=== PATIENT | female | born 1955 | race Caucasian/White ===

== ENCOUNTER 2018-12-01 08:14 | Inpatient (IN) | payer MEDICARE ==
[~2018-12-01 08:14] MED LIST: Acetaminophen TAB* 325 MG PO ONE; Buffered Lidocaine 1% SYRIN* 1 ML/SYRINGE INTRADERM ONE; Dexamethasone TAB* 4 MG PO ONE; DiMENhydriNATE IV* 50 MG/ML VIAL IV PUSH PRN; Famotidine IV* 10 MG/ML 2 ML (20 mg) IV ONE; Gabapentin CAP(*) 300 MG PO ONE; HYDROmorphone INJ1* 1 MG/ML SYRINGE IV PRN; Lactated Ringers 1000 ML Bag* 1,000 ML IV SCH; Naloxone* 0.4 MG/ML 1 ML VIAL IV PRN; Ondansetron ODT TAB* 4 MG PO ONE; PROCHLORPERAZINE INJ 5 MG/ML 2 ML VIAL IV PRN; Tranexamic Acid 1,000 MG in NS 0.9% 50 ML* (outpatient use) IV SCH; fentaNYL* 50 MCG/ML 2 ML VIAL (100 MCG VIAL) IV PRN
--- OUTSIDE RECORDS SUMMARY | 2018-12-01 08:18 | XMS REPORT | Continuity of Care Document ---
:1955 External Reference #:[id number] Author Name Melva Pino M.D. (transmitted by agent of provider Becca Kellogg) Address [address] [place] [address] [place] [address] Care Team Providers Name Role Phone Jose Bethea MD - Internal Care Team Information Correction Officer Supervisor [phone] Medicine Problems Active Problems Provider Date Acquired genu valgum Melva Pino M.D. Onset: 09/28/2018 Localized, primary osteoarthritis Melva Pino M.D. Onset: 09/28/2018 Social History Type Date Description Comments Sex Unknown ETOH Use Denies alcohol use Tobacco Use Start: Unknown Patient has never smoked Recreational Drug Use Denies Drug Use Smoking Status Reviewed: 11/18/18 Patient has never smoked Exercise Type/Frequency Exercises sporadically Allergies, Adverse Reactions, Alerts Active Allergies Reaction Severity Comments Date Doxycycline vomit 09/28/2018 Inactive Allergies NKDA 01/31/2015 Medications Active Medications SIG Qnty Indications Ordering Date Provider Adjust Bath/Shower Seat shower seat Ht . Melva Pino, 2018 66 Wt 180 Dx M.D. Misc right knee OA Raised Toilet Seat raised toilet . Melva Pino, 11/17/2018 Misc seat ht 66 wt M.D. 180 dx right knee oa Cane/Wood/Ladies walking cane ht . Edgar Casa, 11/17/2018 Standardhandle/Stained 66 wt 180 dx [place] right knee oa Misc Rolling Walker (Sylvester) rolling walker . Melva Pino, 2018 ht 66 wt 180 dx M.D. right knee oa Altace 1/2 by mouth Unknown 5mg Capsules every day Coreg 2 by mouth twice Unknown 25mg Tablets a day Torsemide prn Unknown 10mg Tablets Multivitamins 1 by mouth every Unknown Capsules day Calcium + D3 1 by mouth bid Unknown [id number] Tablets Aspirin Adult Low Dose 1 by mouth every Unknown 81mg day Tablets DR Oxygen 2 l nc at Unknown Misc bedtime Hydrocodone-Acetaminoph Unknown en 10-325mg Tablets Spironolactone [place] Young MD 25mg Tablets Calcium + D Unknown Vitamin B Complex 1 by mouth every Unknown Tablets day Medical Marijuana Unknown Immunizations Description No Information Available Vital Signs Date Vital Result Comment 11/18/2018 10:07am Height 66 inches 5'6" Weight 180.00 lb Heart Rate 68 /min BP Systolic 122 mmHg BP Diastolic 80 mmHg Respiratory Rate 16 /min Body Temperature 97.0 F Pain Level 10 BMI (Body Mass Index) 29.0 kg/m2 09/28/2018 2:54pm Height 66 inches 5'6" Weight 180.00 lb BP Systolic 136 mmHg BP Diastolic 92 mmHg Respiratory Rate 16 /min Body Temperature 95.8 F Pain Level 8 BMI (Body Mass Index) 29.0 kg/m2 Results Test Date Facility Test Result H/L Range Note Comp Metabolic 11/18/2018 [facility] Sodium 140 mmol/L Normal 135-145 Panel [address] [place] [address] [phone] Potassium 4.5 mmol/L Normal 3.5-5.0 Chloride 105 mmol/L Normal 101-111 Co2 Carbon Dioxide 29 mmol/L Normal 22-32 Anion Gap 6 mmol/L Normal 2-11 Glucose 93 mg/dL Normal 70-100 Blood Urea Nitrogen 30 mg/dL High 6-24 Creatinine 1.21 mg/dL High 0.51-0.95 BUN/Creatinine Ratio 24.8 High 8-20 Calcium 9.7 mg/dL Normal 8.6-10.3 Total Protein 6.0 g/dL Low 6.4-8.9 Albumin 3.8 g/dL Normal 3.2-5.2 Globulin 2.2 g/dL Normal 2-4 Albumin/Globulin Ratio 1.7 Normal 1-3 Total Bilirubin 0.40 mg/dL Normal 0.2-1.0 Alkaline Phosphatase 51 U/L Normal 34-104 Alt 10 U/L Normal 7-52 Ast 15 U/L Normal 13-39 Egfr Non- 44.8 >60 Egfr 54.2 >60 1 CBC Auto 11/18/2018 [facility] White Blood 7.5 10^3/uL Normal 3.5-10.[address] [place] [address] [phone] Red Blood Count 3.64 10^6/uL Low 3.70-4.87 Hemoglobin 11.0 g/dL Low 12.0-16.0 Hematocrit 33 % Low 35-47 Mean Corpuscular Volume 92 fL Normal 80-97 Mean Corpuscular Hemoglobin 30 pg Normal 27-31 Mean Corpuscular HGB Conc 33 g/dL Normal 31-36 Red Cell Distribution Width 14 % Normal 10-15 Platelet Count 221 10^3/uL Normal 150-450 Mean Platelet Volume 7.9 fL Normal 7.4-10.4 Abs Neutrophils 4.9 10^3/uL Normal 1.5-7.7 Abs Lymphocytes 1.7 10^3/uL Normal 1.0-4.8 Abs Monocytes 0.5 10^3/uL Normal 0-0.8 Abs Eosinophils 0.4 10^3/uL Normal 0-0.6 Abs Basophils 0.1 10^3/uL Normal 0-0.2 Abs Nucleated RBC 0.0 10^3/uL Granulocyte % 65.1 % Lymphocyte % 22.9 % Monocyte % 6.2 % Eosinophil % 5.0 % Basophil % 0.8 % Nucleated Red Blood Cells % 0.0 Inr/Protime 11/18/2018 [facility] Inr 1.02 Normal 0.82-1.[address] [place] [address] [phone] Laboratory test 11/18/2018 [facility] Partial 33.2 Normal 26.0 -38.[address] [place] [address] Time PTT [phone] Urinalysis 11/18/2018 [facility] Urine Color Yellow Profile [address] [place] [address] [phone] Urine Appearance Turbid Urine Specific Cutler 1.023 Normal 1.010-1.030 Urine pH 5.0 Normal 5-9 Urine Urobilinogen Negative Negative Urine Ketones Negative Negative Urine Protein 2+(100 mg/dL) Abnormal Negative Urine Leukocytes 3+ Abnormal Negative Urine Blood 3+ Abnormal Negative * * Abnormal Negative 3 Urine Nitrite Negative Negative Urine Bilirubin Negative Negative Urine Glucose Negative Negative Urine White Blood Cell 3+(>20/hpf) Abnormal Absent Urine Red Blood Cell 3+(>10/hpf) Abnormal Absent Urine Bacteria Absent Absent Urine Squamous Epithelial Cell Present Abnormal Absent Urine Hyaline Casts Present Abnormal Absent Type & Screen 11/18/2018 [facility] Patient Blood Type A Positive [address] [place] [address] [phone] Antibody Screen NEGATIVE Urine Culture And 11/18/2018 [facility] Urine Culture SEE RESULT [address] [place] [address] [phone] 1 Because ethnic data is not always readily available, this report includes an eGFR for both -Americans and non- Americans. The National Kidney Disease Education Program (NKDEP) does not endorse the use of the MDRD equation for patients that are not between the ages of 18 and 70, are , have extremes of body size, muscle mass, or nutritional status, or are non- or non-. According to the National Kidney Foundation, irrespective of diagnosis, the stage of the disease is based on the level of kidney function: Stage Description GFR(mL/min/1.73 m(2)) 1 Kidney damage with normal or decreased GFR 90 2 Kidney damage with mild decrease in GFR 60-89 3 Moderate decrease in GFR 30-59 4 Severe decrease in GFR 15-29 5 Kidney failure <15 (or dialysis) 2 Standard intensity warfarin therapeutic range: 2.0-3.0 High intensity warfarin therapeutic range: 2.5-3.5 3 *Ascorbic acid is present which may interfere with detection of blood. 4 SEE RESULT BELOW Name: ANABELL CAREY : [address]: Melva Pino MD Acct: [id number] Unit: [id number] AGE: 63 Location: PAT Re11/18/18 SEX: F Status: REG REF SPEC: [id number] SANDY: 11/18/18-1250 [facility] DR: Melva Pino MD REQ: [id number] RECD: 11/18/18 STATUS: COMP _ SOURCE: URINE SPDESC: ORDERED: Urine Culture QUERIES: Urine Source: Clean Catch Procedure Result Reported Site Urine Culture Final 11/19/18- 1313 ML No Growth (<1,000 CFU/mL) * - Main Lab . END OF REPORT DEPARTMENT OF PATHOLOGY, [address] [place] [address] Elvis Tirado M.D. Director [facility] # [id number] Procedures Description No Information Available Medical Devices Description No Information Available Encounters Type Date Location Provider Dx Diagnosis Office Visit 09/28/2018 Orthopedic Melva Pino, M25.561 Pain in right 2:[facility] knee M25.461 Effusion, right knee M17.11 Unilateral primary osteoarthritis, right knee M21.061 Valgus deformity, not elsewhere classified, right knee Assessments Date Code Description Provider 11/18/2018 M25.561 Pain in right knee Melva Pino M.D. 11/18/2018 M25.461 Effusion, right knee Melva Pino M.D. 11/18/2018 M17.11 Unilateral primary osteoarthritis, right knee Melva Pino M.D. 11/18/2018 M21.061 Valgus deformity, not elsewhere classified, Melva Pino M.D. right knee 09/28/2018 M25.561 Pain in right knee Melva Pino M.D. 09/28/2018 M25.461 Effusion, right knee Melva Pino M.D. 09/28/2018 M17.11 Unilateral primary osteoarthritis, right knee Melva Pino M.D. 09/28/2018 M21.061 Valgus deformity, not elsewhere classified, Melva Pino M.D. right knee Plan of Treatment Future Appointment(s):12/11/2018 10:00 am - Mel[facility] Pino M.D[facility] at [facility]/01/2018 11:45 am - GAVI Sousa at [facility]12/01/2018 11:45 am - John Singh PA-C at [facility]12/01/2018 11:45 am - Melva Pino M.D. at [facility]11/18/2018 - Melva Pino M.D.M25.561 Pain in right kneeM25.461 Effusion, right kneeM17.11 Unilateral primary osteoarthritis, right kneeFollow up:Follow up: to ORM21.061 Valgus deformity, not elsewhere classified, right knee Functional Status Description No Information Available Mental Status Description No Information Available Referrals Description No Information Available
[2018-12-01] MEDS ORDERED: fentaNYL* 50 MCG/ML 2 ML VIAL (100 MCG VIAL) ONE ×2 (08:29→15:25)
[2018-12-01] MEDS ORDERED: KETAMINE HCL* 50 MG/ML 10 ML VIAL ONE (08:29)
[2018-12-01] MEDS ORDERED: Midazolam* 1 MG/ML 10 ML VIAL (10 MG) ONE (08:29)
[2018-12-01] MEDS ORDERED: DiMENhydriNATE IV* 50 MG/ML VIAL ONE ×2 (08:46→11:46)
[2018-12-01] MEDS ORDERED: Dexamethasone TAB* 4 MG ONE (08:47)
[2018-12-01] MEDS ORDERED: Ondansetron ODT TAB* 4 MG ONE (08:47)
[2018-12-01] MEDS ORDERED: Gabapentin CAP(*) 300 MG ONE (08:47)
[2018-12-01] MEDS ORDERED: Acetaminophen TAB* 325 MG ONE (08:47)
[2018-12-01] MEDS ORDERED: Famotidine IV* 10 MG/ML 2 ML (20 mg) ONE (08:48)
[2018-12-01] MEDS ORDERED: ceFAZolin 2 GM in NS PREMIX(*) 2 GM/100 ML BAG IVPB ONE (08:49)
[2018-12-01] MEDS ORDERED: ROPIVACAINE 5 MG/ML 30 ML BTL (0.5%) ONE (10:37)
[2018-12-01] MEDS ORDERED: Norepinephrine VIAL* 1 MG/ML 4 ML VIAL ONE (11:45)
[2018-12-01] MEDS ORDERED: Lidocaine 2% PF * 5 ML VIAL ONE (11:45)
[2018-12-01] MEDS ORDERED: HYDROmorphone INJ1* 1 MG/ML SYRINGE ONE (11:46)
[2018-12-01] MEDS ORDERED: PROCHLORPERAZINE INJ 5 MG/ML 2 ML VIAL ONE (11:46)
[2018-12-01] MEDS ORDERED: Propofol* 10 MG/ML 20 ML BTL ONE (11:46)
[2018-12-01] MEDS ORDERED: Ondansetron INJ* 2 MG/ML VIAL IV PRN (14:01)
[2018-12-01] MEDS ORDERED: diPHENhydraMINE IV* 50 MG/ML 1 ml VIAL (BENADRYL) IV PRN (14:01)
[2018-12-01] MEDS ORDERED: Temazepam CAP* 15 MG PO PRN (14:01)
[2018-12-01] MEDS ORDERED: traMADol TAB* 50 MG PO PRN (14:01)
[2018-12-01] MEDS ORDERED: Morphine INJ* 2 MG/ML 1 ML SYRINGE (TWO MG - NEW SYRINGE VERSION) IV PRN (14:01)
[2018-12-01] MEDS ORDERED: Ondansetron ODT TAB* 4 MG PO PRN (14:01)
[2018-12-01] MEDS ORDERED: oxyCODONE TAB* 5 MG TAB PO PRN (14:01)
[2018-12-01] MEDS ORDERED: oxyCODONE/Acetamin 5/325 MG* TAB PO PRN (14:01)
[2018-12-01] MEDS ORDERED: Polyethylene Glycol 3350* 17 GM PACKET PO PRN (14:01)
[2018-12-01] MEDS ORDERED: Magnesium Hydroxide LIQ* 30 ML UDC PO PRN (14:01)
[2018-12-01] MEDS ORDERED: diPHENhydraMINE PO* 25 MG PO PRN (14:01)
[2018-12-01] MEDS ORDERED: hydrOXYzine HCL TAB* 50 MG PO PRN (14:07)
[2018-12-01] MEDS ORDERED: oxyCODONE TAB* 5 MG TAB ONE ×2 (15:08→15:25)
[2018-12-01] MEDS: oxyCODONE TAB* 5 MG TAB PO PRN ×2 (15:09→15:26)
[2018-12-01] MEDS: Lactated Ringers 1000 ML Bag* 1,000 ML IV SCH (16:21)
--- NOTE | 2018-12-01 16:25 | PN ---
Progress Note - Progress Note Date of Service: 12/01/18 SOAP: Subjective: [Pt is laying in bed sleeping. She is easily arousable. States knee is sore. No other complaints ] Objective: [Pt is sleepy, but oriented. NAD. +df/pf] Vital Signs Temp 97.5 F 12/01/18 15:04 Pulse 60 12/01/18 15:31 Resp 18 12/01/18 15:31 BP 132/83 12/01/18 15:31 Pulse Ox 100 12/01/18 15:31 Intake & Output 11/30/18 12/01/18 12/01/18 18:59 06:59 18:59 Intake Total 1245 Output Total 525 Balance 720 Weight 180 lb Intake: IV Fluids 1200 LR 1200 Oral 45 Output: Townsend 525 Assessment: [SP RTKA] Plan: [Pain medication will be: percocet 10 - 325 every 6 hours scheduled oxycodone 5mg for breakthrough pain Morphine for severe breakthrough pain ]
[2018-12-01] MEDS: Cyclobenzaprine TAB* 10 MG PO PRN (16:50)
[2018-12-01] MEDS: oxyCODONE TAB* 5 MG TAB PO SCH ×2 (17:25→22:05)
[2018-12-01] MEDS: oxyCODONE/Acetamin 5/325 MG* TAB PO SCH ×2 (17:25→22:05)
--- NOTE | 2018-12-01 18:47 | CONS ---
CC: Dr. Jose Bethea; Dr. Pino * CONSULTATION REPORT: DATE OF CONSULT: 12/01/18 PRIMARY CARE PROVIDER: Dr. Jose Bethea. REQUESTING PHYSICIAN: Dr. Pino from Orthopedic Surgery. REASON FOR CONSULT: Postoperative management of a patient with history of congestive heart failure and dilated cardiomyopathy. CHIEF COMPLAINT: Right knee pain. HISTORY OF PRESENT ILLNESS: Anabell Narayan is a 63-year-old female with history of obesity, dilated idiopathic cardiomyopathy, who is status post elective right knee replacement. The patient was seen in the postoperative unit complaining of mild knee pain. Medical consult was requested due to the patient 's history of CHF and cardiomyopathy in the past. PAST MEDICAL HISTORY: 1. History of multiple problems with nephrolithiasis in the past, status post percutaneous nephrostomy and lithotripsy several times. 2. History of chronic systolic CHF with dilated cardiomyopathy noted "years ago " with cardiac catheterization at that point documenting no significant coronary artery disease. PAST SURGICAL HISTORY: 1. Status post cholecystectomy in 2006. 2. Knee surgery in 2006. 3. Carpal tunnel release in 2008. 4. History of gastric sleeve surgery in 2015. MEDICATIONS AT HOME: Include: 1. Percocet 10/325 mg 1 tablet 4 times a day p.r.n. 2. Atarax 50 mg 4 times a day p.r.n. 3. Clonazepam 0.5 mg at bedtime. 4. Clonidine 0.1 mg b.i.d. 5. Torsemide 10 mg t.i.d. 6. Aldactone 25 mg in a.m. 7. Ramipril 2.5 mg at bedtime. 8. Multivitamin 1 tablet daily. 9. Medical marijuana as ordered by her primary care provider. 10. Coreg 25 mg b.i.d. 11. Calcium carbonate/vitamin D 1 capsule b.i.d. 12. Aspirin 81 mg daily. ALLERGIES: No known drug allergies. FAMILY HISTORY: Positive for father who of complications of heart disease with history of CHF and mother with history of lung cancer. SOCIAL HISTORY: The patient denies any tobacco, alcohol, or drug use. She lives with her , Carlos, who is her surrogate. She is a full code. REVIEW OF SYSTEMS: Please see history of present illness. In addition to above mentioned, the patient also complains of bilateral ankle swelling, which is chronic. All the remaining 12 systems were reviewed with the patient and were otherwise negative. PHYSICAL EXAM: Blood pressure of 137/73, heart rate of 64 and regular, respiratory rate 18, oxygen saturation 100% on 2 L oxygen via nasal cannula, temperature of 97.5. General: The patient is a very pleasant 63-year-old female, who is in no acute distress. Alert, awake, and oriented x3. HEENT: Head: Atraumatic, normocephalic. Eyes: Pupils are equal, reactive to light and accommodation. Oropharynx is clear. Mucosa moist. Neck: Supple. No JVD. No bruits bilaterally. Cardiovascular: Regular rate and rhythm. No murmur. Respiratory: Clear to auscultation bilaterally. Abdomen: Soft, nontender. Bowel sounds are present in all 4 quadrants. Extremities: There is +1 pitting bilateral ankle edema. Pulses are +2 bilaterally. There is no clubbing or cyanosis. On neuro evaluation, speech is clear. Cranial nerves II through XII grossly intact. Motor strength is 5/5 bilaterally. LABORATORY DATA: None currently. ASSESSMENT AND PLAN: 1. In regards to the patient's postoperative right knee surgery, the patient was already placed on apixaban for DVT prophylaxis as per Orthopedic Surgery. 2. In regards to the patient's history of dilated cardiomyopathy, at this point , I was unable to find the cardiac preop clearance that apparently was obtained prior to the patient's today's surgery. At this point, I recommend continuation of the patient's diuretics as previously taken. I will obtain daily weights and follow with the patient on a daily basis. 3. For DVT prophylaxis, the patient is going to be continued on Eliquis as started by the primary team. 4. For history of anxiety, hydroxyzine is going to be provided on an as-needed basis. 5. For history of hypertension, her ramipril is going to be held and clonidine continued. 6. The patient's code status is full and her surrogate is her . TIME SPENT: Approximately 55 minutes was spent on consultation of this patient , more than half that time was spent [id number] with the patient during the interview and physical exam. [id number]/CPS #: [id number] POPPY
[2018-12-01] MEDS: ceFAZolin 1 GM ADVAN(*) 1 GM in NS 0.9% 50 ML* 50 ML IVPB SCH (20:23)
[2018-12-01] MEDS ORDERED: Ramipril CAP* 2.5 MG PO SCH (21:00)
--- NOTE | 2018-12-01 21:50 | OP ---
Operative Report - Blank - Operative Report Date of Operation: 12/01/18 Note: LAWRENCE CAREY 1955 Date of Surgery: 12/01/[address] Mel[address] MD [address] Test Examiner: Nava GREEN did help throughout the procedure with preparation of the knee, wound retraction, manipulation of the knee, and wound closure. Anesthesiologist: Laura Fonseca MD Anesthesia Type: Spinal Preoperative Diagnosis: Right severe degenerative osteoarthritis of the knee with valgus deformity Postoperative Diagnosis: As above Procedure Performed: Right Total Knee Arthroplasty Tourniquet time: 49 minutes Complications: None Specimen: Bone and cartilage from the right knee joint sent to pathology. Hardware Used: Cemented Jefferson [employer] Nephew total knee hardware was used - For the femur a size 6 right narrrow oxinium legion posterior stabilized femoral component, for the tibia a size 5 right shon II tibial baseplate, for the insert a size 11mm constrained posterior stabilized articular polyethylene insert, and for the patella a size 32 3-peg all poly patella. Brief History/Indication: LAWRENCE CAREY was known in clinic and had a history of severe right knee pain and swelling. She failed conservative treatment with anti -inflammatories, pain pills, intra-articular injections and physical therapy. She elected to undergo right total knee arthroplasty due to continued pain and decreased quality of life. Radiographs showed severe end stage osteoarthritis of the knee with bone on bone contact. Informed consent was obtained from the patient. She understood the risks of surgery included but were not limited to: bleeding, infection, damage to nearby structures, intraoperative fracture, nerve palsy, failure of the hardware, early loosening, knee stiffness or loss of motion, anesthesia complications, stroke, heart attack, blood clot and . She wished to proceed. Intra-Operative Findings: Intraoperatively the patient was noted to have severe loss of cartilage in all 3 compartments of the knee. She had 22 degree valgus deformity to begin the case with a 10 degree flexion contracture. Description of the Procedure: LAWRENCE CAREY was identified in the preanesthesia unit. Her right knee was marked as the correct operative side. Informed consent was signed and placed in the chart. The patient was taken to the operating room and placed under anesthesia without complication. A nelson catheter was placed. A tourniquet was placed on the right thigh. The right lower extremity was prepped and draped in the usual sterile fashion. Preoperative time-out was made to correctly identify the patient, side and site. Appropriate intraoperative antibiotics were given within one hour of incision. Tourniquet was inflated. A midline incision was made and carried sharply down to the extensor mechanism. A new 10 blade was used to make a standard medial parapatellar arthrotomy. The patella was subluxed laterally. Electrocautery was used to dissect soft tissue off the superomedial tibia to the midsagittal plane. The knee was flexed up. The anterior horn of the lateral meniscus and the ACL were sharply incised. A drill was used to enter the distal femur. The intramedullary distal femoral cutting guide was pinned on the distal femur. The oscillating saw was used to make the distal femoral cut. The external rotation guide was pinned on the distal femur and the distal femur was sized to a size 6. The size 6 multi-cutting jig was pinned on the distal femur. The oscillating saw was used to make the appropriate 4 chamfer cuts. Next the PCL was completely released. The extramedullary tibial cutting guide was pinned on the proximal tibia and the oscillating saw was used to make the proximal tibial cut perpendicular to the mechanical axis of the tibia. The bone was carefully removed. The knee was brought out into full extension. The spacer block was placed and had excellent fit with the knee in full extension. Posterolateral capsule was carefully released off of the tibia. Pie crusting technique was used to release a small amount of the LCL to improve balancing. The medial and lateral ligaments were well balanced. The flexion and extension gaps were well balanced. The knee was flexed up. Lamina trailer driver was placed both medially and laterally. Any remaining meniscus was removed with electrocautery. Curved osteotome was used to remove any posterior osteophytes. The tibial tray and drop yvonne were placed and confirmed a satisfactory tibial cut. The size 6 right narrow femoral trial was impacted onto the distal femur. This trial had excellent fit and stability. The box for the posterior stabilized implant was prepared using a box cut osteotome and a reamer. Next a tibial tray trial and 9 mm insert trial was placed. The knee was taken through a range of motion and had full extension to 130 degrees of flexion. Patellofemoral tracking was satisfactory. The patella was inverted and sized to a size 32. Three peg holes were drilled through the size 32 drill guide. The trial patella was placed and the knee was taken through a range of motion. There was satisfactory patellofemoral tracking. All trials were removed. The tibia was subluxed anteriorly and sized to a size 5. The proximal tibial was prepared with a size 5 keel punch. All bony cut surfaces were irrigated with sterile saline and dried. Final implants were cemented into place starting with the tibia, followed by the femur, and last the patella. A 9 mm insert trial was placed and the knee was brought into full extension. Tourniquet was turned down and the knee was copiously irrigated with sterile saline. Electrocautery was used to obtain meticulous hemostasis. Once the cement had fully cured, the insert trial was removed. Any excess cement was removed from around the hardware and capsule. Final insert chosen was a 11 mm posterior stabilized Shon II articular insert size 5-6. Stability of the insert was checked and noted to be stable. The extensor mechanism was closed using number 1 vicryls. The rest of the incision was closed in a layered fashion using 0 and 2-0 vicryls. The skin was closed using 3-0 nylon suture. Sterile xeroform, 4x4s and webril were used to cover the incision. Ant wrap and cold pack were used to cover the dressings. The patients anesthesia was reversed without difficulty. She was taken to the PACU in stable condition. Intended weight-bearing will be as tolerated.
[2018-12-01] MEDS: clonazePAM TAB(*) 1 MG PO SCH (22:04)
[2018-12-01] MEDS: Magnesium Hydroxide LIQ* 30 ML UDC PO SCH (22:05)
[2018-12-01] MEDS: Docusate CAP* 100 MG PO SCH (22:05)
[2018-12-01] MEDS: Acetaminophen TAB* 325 MG PO SCH (22:06)
[2018-12-01] MEDS: Carvedilol TAB* 25 MG PO SCH (22:06)
[2018-12-01] MEDS: Torsemide TAB 10 MG PO SCH (22:06)
[2018-12-01] MEDS: cloNIDine TAB* 0.1 MG PO SCH (22:06)
[2018-12-02] MEDS: Cyclobenzaprine TAB* 10 MG PO PRN ×2 (01:43→16:27)
[2018-12-02] MEDS: Lactated Ringers 1000 ML Bag* 1,000 ML IV SCH ×2 (01:46→12:06)
[2018-12-02] MEDS: ceFAZolin 1 GM ADVAN(*) 1 GM in NS 0.9% 50 ML* 50 ML IVPB SCH ×2 (04:01→12:03)
[2018-12-02] MEDS: Acetaminophen TAB* 325 MG PO SCH ×3 (06:20→21:23)
--- NOTE | 2018-12-02 08:34 | PN ---
Progress Note - Progress Note Date of Service: 12/02/18 SOAP: Subjective: []Pt seen and examined at bedside. She feels well without complaints. Desires lavender for help sleeping. Was nauseous this morning, zofran relieved. Denies CP, SOB, dizziness, nausea. Objective: []Gen: Appears well, NAD RLE: Right knee dressing CDI, thigh soft, DF/PF intact, DP2+, sensation intact to light touch distally Calves supple and nontender without erythema, edema or palpable cords Assessment: []POD 1 sp RTK Plan: []WBAT PT/OT eliquis 2.5 mg po bid Pain medication per pain mgmt: percocet 10/325 every 6 hours scheduled oxycodone 5mg for moderate breakthrough pain Morphine for severe breakthrough pain Vital Signs Temp 97.9 F 12/02/18 08:13 Pulse 82 12/02/18 08:13 Resp 18 12/02/18 09:30 BP 110/66 12/02/18 08:13 Pulse Ox 100 12/02/18 08:13 Intake & Output 12/01/18 12/02/18 12/02/18 18:59 06:59 18:59 Intake Total 1245 1442 Output Total 525 350 Balance 720 1092 Weight 180 lb 183 lb 9.6 oz Intake: IV Fluids 1200 852 LR 1200 852 IVPB 110 ABX - CEFAZOLIN 110 Oral 45 480 Output: Townsend 525 350 Laboratory Last Values Hgb 9.7 g/dL (12.0-16.0) L 12/02/18 10:04 Hct 29 % (35-47) L 12/02/18 10:04 Plt Count 181 10^3/uL (150-450) 12/02/18 10:04 MPV 8.0 fL (7.4-10.4) 12/02/18 10:04 Sodium 138 mmol/L (135-145) 12/02/18 10:04 Potassium 4.5 mmol/L (3.5-5.0) 12/02/18 10:04 Chloride 108 mmol/L (101-111) 12/02/18 10:04 Carbon Dioxide 25 mmol/L (22-32) 12/02/18 10:04 Anion Gap 5 mmol/L (2-11) 12/02/18 10:04 BUN 28 mg/dL (6-24) H 12/02/18 10:04 Creatinine 0.98 mg/dL (0.51-0.95) H 12/02/18 10:04 Est GFR ( Amer) 69.1 (>60) 12/02/18 10:04 Est GFR (Non-Af Amer) 57.1 (>60) 12/02/18 10:04 BUN/Creatinine Ratio 28.6 (8-20) H 12/02/18 10:04 Glucose 123 mg/dL (70-100) H 12/02/18 10:04 POC Glucose (mg/dL) 134 mg/dL (70-100) H 12/02/18 08:46 Calcium 8.7 mg/dL (8.6-10.3) 12/02/18 10:04
[2018-12-02] MEDS ORDERED: Influenza VAC *QUAD* 2019-20* 0.5 ML SYRINGE IM ONE (09:00)
[2018-12-02] MEDS: Apixaban* 2.5 MG TAB PO SCH ×2 (09:22→20:43)
[2018-12-02] MEDS: Vitamin THERAPEUTIC TAB PO SCH (09:22)
[2018-12-02] MEDS: Spironolactone TAB* 25 MG PO SCH (09:22)
[2018-12-02] MEDS: Torsemide TAB 10 MG PO SCH ×3 (09:22→20:46)
[2018-12-02] MEDS: oxyCODONE TAB* 5 MG TAB PO SCH ×2 (09:22→12:56)
[2018-12-02] MEDS: Docusate CAP* 100 MG PO SCH ×2 (09:22→20:45)
[2018-12-02] MEDS: cloNIDine TAB* 0.1 MG PO SCH ×2 (09:22→20:46)
[2018-12-02] MEDS: oxyCODONE/Acetamin 5/325 MG* TAB PO SCH ×2 (09:23→12:56)
[2018-12-02] MEDS: Magnesium Hydroxide LIQ* 30 ML UDC PO SCH ×3 (09:23→20:47)
[2018-12-02] MEDS: Carvedilol TAB* 25 MG PO SCH ×2 (09:23→20:47)
[2018-12-02 10:15] LABS: Hematocrit 29 % (35-47); Hemoglobin 9.7 g/dL (12.0-16.0); Platelet Count 181 10^3/uL (150-450)
[2018-12-02 10:32] LABS: BUN/Creatinine Ratio 28.6 (8-20); Calcium 8.7 mg/dL (8.6-10.3); EGFR African American 69.1 (>60); EGFR Non-African American 57.1 (>60); Potassium 4.5 mmol/L (3.5-5.0)
[2018-12-02] MEDS ORDERED: oxyCODONE/Acetamin 5/325 MG* TAB PO PRN ×2 (14:14)
[2018-12-02] MEDS ORDERED: oxyCODONE TAB* 5 MG TAB PO PRN (14:24)
--- NOTE | 2018-12-02 18:50 | PN ---
Subjective Date of Service: 12/02/18 Interval History: Patient seen and examined. Hypotensive today with urinary retention post nelson removal. Discussed with RN and ortho. Patient denies dizziness, no diaphoresis or tachycardia noted. She states her pain is intense and shoots up to "10". We discussed how low her BP is though and the use of narcotics. She states she understands that her narcotic dependence is an issue and she has been working with pain management to wean off. Objective Active Medications: Acetaminophen (Tylenol Tab*) 975 mg PO Q8HR COUNTS INCLUDE 234 BEDS AT THE [facility] Last Admin: 12/02/18 12:59 Dose: 975 mg Apixaban (Eliquis*) 2.5 mg PO BID COUNTS INCLUDE 234 BEDS AT THE [facility] Last Admin: 12/02/18 09:22 Dose: 2.5 mg Bisacodyl (Dulcolax Supp*) 10 mg MS DAILY PRN PRN Reason: CONSTIPATION Carvedilol (Coreg Tab*) 25 mg PO BID COUNTS INCLUDE 234 BEDS AT THE [facility] Last Admin: 12/02/18 09:23 Dose: 25 mg Clonazepam (Klonopin Tab(*)) 0.5 mg PO BEDTIME COUNTS INCLUDE 234 BEDS AT THE [facility] Last Admin: 12/01/18 22:04 Dose: 0.5 mg Clonidine HCl (Catapres Tab*) 0.1 mg PO BID COUNTS INCLUDE 234 BEDS AT THE [facility] Last Admin: 12/02/18 09:22 Dose: 0.1 mg Cyclobenzaprine HCl (Flexeril Tab*) 10 mg PO Q6H PRN PRN Reason: SPASMS Last Admin: 12/02/18 16:27 Dose: 10 mg Diphenhydramine HCl (Benadryl Iv*) 25 mg IV Q6H PRN PRN Reason: PRURITIS Diphenhydramine HCl (Benadryl Po*) 25 mg PO Q6H PRN PRN Reason: PRURITIS Docusate Sodium (Colace Cap*) 100 mg PO BID COUNTS INCLUDE 234 BEDS AT THE [facility] Last Admin: 12/02/18 09:22 Dose: 100 mg Hydroxyzine HCl (Atarax Tab*) 50 mg PO QID PRN PRN Reason: for withdrawal symptoms Lactated Ringer's (Lactated Ringers 1000 Ml Bag*) 1,000 mls @ 100 mls/hr IV PER RATE COUNTS INCLUDE 234 BEDS AT THE [facility] Last Admin: 12/02/18 12:06 Dose: 100 mls/hr Lactulose (Lactulose*) 30 ml PO BID PRN PRN Reason: CONSTIPATION Magnesium Hydroxide (Milk Of Magnesia Liq*) 30 ml PO BID COUNTS INCLUDE 234 BEDS AT THE [facility] Last Admin: 12/02/18 09:27 Dose: Not Given Magnesium Hydroxide (Milk Of Magnesia Liq*) 30 ml PO Q6H PRN PRN Reason: CONSTIPATION Morphine Sulfate (Morphine Inj (Syringe))*) 2 mg IV Q4H PRN PRN Reason: Pain - Unrelieved Multivitamins (Theragran Tab*) 1 tab PO DAILY COUNTS INCLUDE 234 BEDS AT THE [facility] Last Admin: 12/02/18 09:22 Dose: 1 tab Ondansetron HCl (Zofran Inj*) 4 mg IV Q6H PRN PRN Reason: NAUSEA Last Admin: 12/02/18 09:31 Dose: 4 mg Ondansetron HCl (Zofran Odt Tab*) 4 mg PO Q6H PRN PRN Reason: NAUSEA Oxycodone HCl (Roxycodone Tab*) 5 mg PO QID PRN PRN Reason: PAIN - MODERATE Oxycodone HCl (Roxycodone Tab*) 10 mg PO Q4H PRN PRN Reason: PAIN - SEVERE Oxycodone/Acetaminophen (Percocet 5/325 Tab*) 1 tab PO Q4H PRN PRN Reason: PAIN - MODERATE Oxycodone/Acetaminophen (Percocet 5/325 Tab*) 1 tab PO QID PRN PRN Reason: PAIN - MILD Polyethylene Glycol/Electrolytes (Miralax*) 17 gm PO DAILY PRN PRN Reason: Constipation Spironolactone (Aldactone Tab*) 25 mg PO QAM COUNTS INCLUDE 234 BEDS AT THE [facility] Last Admin: 12/02/18 09:22 Dose: 25 mg Temazepam (Restoril Cap*) 15 mg PO BEDTIME PRN PRN Reason: INSOMNIA Torsemide (Torsemide) 10 mg PO TID COUNTS INCLUDE 234 BEDS AT THE [facility] Last Admin: 12/02/18 13:14 Dose: Not Given Vital Signs - 8 hr 12/02/18 12/02/18 12/02/18 11:44 11:57 12:07 Temperature 97.6 F Pulse Rate 77 Respiratory 16 18 Rate Blood Pressure 89/56 82/62 (mmHg) O2 Sat by Pulse 100 Oximetry 12/02/18 12/02/18 12/02/18 12:08 12:50 16:00 Temperature Pulse Rate Respiratory 18 Rate Blood Pressure 104/62 (mmHg) O2 Sat by Pulse 99 Oximetry 12/02/18 12/02/18 16:18 16:27 Temperature 97.7 F Pulse Rate 105 Respiratory 18 18 Rate Blood Pressure 98/58 (mmHg) O2 Sat by Pulse 99 Oximetry Oxygen Devices in Use Now: None Appearance: alert, NAD Eyes: PERRLA Ears/Nose/Mouth/Throat: Mucous Membranes Moist Neck: NL Appearance and Movements; NL JVP, Trachea Midline Respiratory: Symmetrical Chest Expansion and Respiratory Effort, Clear to Auscultation Cardiovascular: NL Sounds; No Murmurs; No JVD, RRR, No Edema Abdominal: NL Sounds; No Tenderness; No Distention Extremities: No Edema, No Clubbing, Cyanosis, - - right knee dressing CDI Skin: No Rash or Ulcers Neurological: Alert and Oriented x 3 Nutrition: Taking PO's Result Diagrams: 12/02/18 10:04 12/02/18 10:04 Assess/Plan/Problems-Billing Assessment: This is a 63 year old female with hx of chronic pain that presented for elective right TKA. - Patient Problems (1) Status post total right knee replacement Code(s): Z96.651 - PRESENCE OF RIGHT ARTIFICIAL KNEE JOINT SNOMED Code(s): 0579250643104 Comment: - POD1, POC as per orthopedics - Highly recommend decreasing PRN narcotics given hypotension today and change from Q6h scheduled to Q6h PRN, confirmed with her pharmacy that this is how it is prescribed - PT/OT (2) Hypotension Comment: - Combination of narcotics and anesthesia - continue IVF, limit narcotics as feasible (3) Chronic pain Code(s): G89.29 - OTHER CHRONIC PAIN SNOMED Code(s): 61688952 Comment: - Confirmed home dosing schedule with outpatient pharmacy should be Q6h PRN, not scheduled - Monitor for sedation and hypotension (4) Urinary retention Code(s): R33.9 - RETENTION OF URINE, UNSPECIFIED SNOMED Code(s): 980876496 Comment: - Nelson removed, retaining >350ml - Straight cath and scan for PVR - Continue to push hydration and ambulation Status and Disposition: - Inpatient, dispo as per orthopedics
[2018-12-02 18:58] LABS: Urine Appearance Cloudy; Urine Bacteria Absent (Absent); Urine Bilirubin Negative (Negative); Urine Blood 3+ (Negative); Urine Color Yellow; Urine Glucose Negative (Negative); Urine Ketones Negative (Negative); Urine Nitrite Negative (Negative); Urine Protein Negative (Negative); Urine Red Blood Cell 3+(>10/hpf) (Absent); Urine Specific Gravity 1.015 (1.010-1.030); Urine Urobilinogen Negative (Negative); Urine White Blood Cell 3+(>20/hpf) (Absent)
[2018-12-02] MEDS: oxyCODONE/Acetamin 5/325 MG* TAB PO PRN (20:44)
[2018-12-02] MEDS: clonazePAM TAB(*) 1 MG PO SCH (21:18)
[2018-12-02] MEDS: oxyCODONE TAB* 5 MG TAB PO PRN (21:49)
[2018-12-03] MEDS: Cyclobenzaprine TAB* 10 MG PO PRN (04:06)
[2018-12-03] MEDS: Acetaminophen TAB* 325 MG PO SCH ×2 (05:22→05:43)
[2018-12-03] MEDS: oxyCODONE/Acetamin 5/325 MG* TAB PO PRN (07:43)
[2018-12-03 08:02] LABS: Hematocrit 26 % (35-47); Hemoglobin 8.5 g/dL (12.0-16.0); Mean Platelet Volume 8.3 fL (7.4-10.4); Platelet Count 168 10^3/uL (150-450)
[2018-12-03] MEDS: Torsemide TAB 10 MG PO SCH (08:31)
[2018-12-03] MEDS: cloNIDine TAB* 0.1 MG PO SCH (08:31)
[2018-12-03] MEDS: Carvedilol TAB* 25 MG PO SCH (08:31)
[2018-12-03] MEDS: Magnesium Hydroxide LIQ* 30 ML UDC PO SCH (08:31)
[2018-12-03] MEDS: Spironolactone TAB* 25 MG PO SCH (08:31)
[2018-12-03] MEDS: Apixaban* 2.5 MG TAB PO SCH (10:03)
[2018-12-03] MEDS: Vitamin THERAPEUTIC TAB PO SCH (10:03)
[2018-12-03] MEDS: Docusate CAP* 100 MG PO SCH (10:03)
--- NOTE | 2018-12-03 10:32 | PN ---
Progress Note - Progress Note Date of Service: 12/03/18 SOAP: Subjective: []Pt seen at bedside, she feels well without CP, SOB, dizziness or nausea. Her pain is well controlled at this time, reports 10/10 pain overnight. Her pain medications were decreased to PRNs rather than scheduled as her BP was low yesterday, BP much improved with this change. Had a skin tear of her left veloz resulting from 's finger nail while helping her dress. Objective: []Gen: Appears well, NAD RLE: Right knee dressing changed, incision is CDI, thigh soft, DF/PF intact, DP2 +, sensation intact to light touch distally Calves Left veloz skin tear roughly 2 cm upsidedown v shape. cleaned with soap and water , abx ointment and telfa placed. Assessment: []POD 2 sp RTK Plan: []WBAT PT/OT eliquis 2.5 mg po bid DC home today Repeat vitals, HR 97 O2 sat 99 Vital Signs Temp 98.6 F 12/03/18 08:17 Pulse 102 12/03/18 08:17 Resp 18 12/03/18 10:10 BP 130/75 12/03/18 08:17 Pulse Ox 100 12/03/18 08:17 Intake & Output 12/02/18 12/03/18 12/03/18 18:59 06:59 18:59 Intake Total 1280 1698 Output Total 770 150 0 Balance 510 1548 0 Weight 190 lb 8 oz Intake: IV Fluids 980 998 ABX - CEFAZOLIN 49 LR 980 949 Oral 300 700 Output: Urine 450 150 0 Straight Cath 320 Other: # Bowel Movements 1 Estimated Stool Amount Large Laboratory Last Values Hgb 8.5 g/dL (12.0-16.0) L 12/03/18 06:45 Hct 26 % (35-47) L 12/03/18 06:45 Plt Count 168 10^3/uL (150-450) 12/03/18 06:45 MPV 8.3 fL (7.4-10.4) 12/03/18 06:45 Sodium 138 mmol/L (135-145) 12/02/18 10:04 Potassium 4.5 mmol/L (3.5-5.0) 12/02/18 10:04 Chloride 108 mmol/L (101-111) 12/02/18 10:04 Carbon Dioxide 25 mmol/L (22-32) 12/02/18 10:04 Anion Gap 5 mmol/L (2-11) 12/02/18 10:04 BUN 28 mg/dL (6-24) H 12/02/18 10:04 Creatinine 0.98 mg/dL (0.51-0.95) H 12/02/18 10:04 Est GFR ( Amer) 69.1 (>60) 12/02/18 10:04 Est GFR (Non-Af Amer) 57.1 (>60) 12/02/18 10:04 BUN/Creatinine Ratio 28.6 (8-20) H 12/02/18 10:04 Glucose 123 mg/dL (70-100) H 12/02/18 10:04 POC Glucose (mg/dL) 83 mg/dL (70-100) 12/03/18 07:51 Calcium 8.7 mg/dL (8.6-10.3) 12/02/18 10:04 Urine Color Yellow 12/02/18 15:05 Urine Appearance Cloudy 12/02/18 15:05 Urine pH 5.0 (5-9) 12/02/18 15:05 Ur Specific [place] 1.015 (1.010-1.030) 12/02/18 15:05 Urine Protein Negative (Negative) 12/02/18 15:05 Urine Ketones Negative (Negative) 12/02/18 15:05 Urine Blood 3+ (Negative) A 12/02/18 15:05 Urine Nitrate Negative (Negative) 12/02/18 15:05 Urine Bilirubin Negative (Negative) 12/02/18 15:05 Urine Urobilinogen Negative (Negative) 12/02/18 15:05 Ur Leukocyte Esterase 3+ (Negative) A 12/02/18 15:05 Urine WBC (Auto) 3+(>20/hpf) (Absent) A 12/02/18 15:05 Urine RBC (Auto) 3+(>10/hpf) (Absent) A 12/02/18 15:05 Urine Bacteria Absent (Absent) 12/02/18 15:05 Urine Glucose Negative (Negative) 12/02/18 15:05
--- NOTE | 2018-12-03 10:46 | DS ---
Orthopedic Discharge Summary - Discharge Summary Date of Admission:12/01/18 Date of Discharge: 12/03/18 Date of Surgery: 12/01/18 Attending Orthopedic Provider: Dr Pino Pre-operative Diagnosis: Right knee osteoarthritis Operative Procedure: right total knee replacement Disposition of Patient: home Condition of Patient: stable History: LAWRENCE CAREY is a 63 year old F with years of increasingly severe right knee pain. Patient has failed conservative management and has elected to undergo a right total knee replacement Hospital Course: LAWRENCE was admitted to [facility] on 12/01/18. Patient underwent a right total knee replacement without complication followed by a brief recovery in PACU and transfer to the Short Stay Surgical Unit in stable condition. Our hospitalist service, physical therapy and occupational therapy also participated in this patients care. Post-op day 1: patient was alert and in no acute distress. Dressing was clean, dry and intact. Operative extremity dorsiflexion and plantarflexion intact, sensation intact to light touch distally, DP2+. Post-op day two: dressing was changed, incision was clean , dry and intact. Patient was deemed to be medically and orthopedically stable for discharge. Physical therapy goals were met. Home Medications Medication Instructions Recorded Confirmed Type Aspirin [Aspirin Adult Low Dose 81 81 mg PO QAM 04/21/15 12/01/18 History MG] Multivitamin [Multivitamins] 1 cap PO QAM 04/21/15 12/01/18 History clonazePAM [Klonopin] 0.5 mg PO BEDTIME 04/21/15 12/01/18 History Carvedilol TAB* [Coreg TAB*] 25 mg PO BID 06/02/15 12/01/18 History Torsemide TAB* [Demadex 20 MG*] 10 mg PO TID MDD 30 06/08/15 12/01/18 History Calcium Carbonate/Vitamin D3 1 each PO BID 11/18/18 12/01/18 History [Calcium 500 mg-Vit D3 600 Unit] Medical Marijuana 0.1 - 0.4 mg SL SEE INSTRUCTIONS 11/18/18 12/01/18 History PRN Ramipril CAP* [Altace CAP*] 2.5 mg PO BEDTIME 11/18/18 12/01/18 History Spironolactone [Aldactone 25 MG-] 25 mg PO QAM 11/18/18 12/01/18 History cloNIDine TAB* [Catapres 0.1 MG 0.1 mg PO BID 11/18/18 12/01/18 History TAB*] hydrOXYzine HCL TAB* [Atarax TAB 50 mg PO QID PRN 11/18/18 12/01/18 History 50 MG *] oxyCODONE/Acetamin 10/325(NF) 1 tab PO QID 11/18/18 12/01/18 History [Percocet 10/325 (NF)] Acetaminophen TAB* [Tylenol TAB*] 975 mg PO Q8HR tab 12/03/18 Rx Apixaban* [Eliquis*] 2.5 mg PO BID 30 Days #60 tab 12/03/18 Rx Docusate CAP* [Colace Cap*] 100 mg PO BID PRN #90 cap 12/03/18 Rx oxyCODONE TAB* [Roxycodone TAB 5 10 mg PO Q4H PRN #30 tab MDD 10 12/03/18 Rx mg*] Discharge Instructions following Orthopedic Surgery: Activity: * Weight Bearing as tolerated * Continue physical therapy and occupational therapy exercises as shown * Home PT Wound care: * OK to shower on post-op day 3, no bathing, swimming, or submerging wound. * Use gentle soap, pat dry. Cover with gauze, GABBI wrap or tape. * Visiting home nurse to do wound checks Visiting nurse to check BP as it was low in the hospital, systolic in the 80s. Recommend decreased use of narcotics with low BP and contact PCP Call Orthopedic office for: * Increased drainage * Redness * Increased pain * Fever Go to ER with shortness of breath or chest pain. Diet: * Regular diet * Increase fluids and fiber to prevent constipation. * Continue to use stool softeners, call office if no bowel motion within 48 hours. Medications See Home Medication List in your packet for medications that you should take after discharge. DVT Prophylaxis: Eliquis Dosin.5 mg, 1 tab every 12 hours x 30 days. Increases bleeding tendency Pain Control: May continue home dose of Percocet Dosin/325 mg 1-2 tabs by mouth every 6 hours as needed for mild pain. WEan off as soon as pain allows. Hold for sedation and for low BP. Take only as needed, not routinely For breakthrough pain may use oxycodone 5 mg 1 tab for moderate, 2 tabs for severe pain every 4 hours max 10 per day but please hold for sedation or low BP and wean off as soon as pain allows If you are using your medical marijuana please do not use oxycodone in addition. Use one or the other to avoid over sedation. Please note that Percocet contains Tylenol (acetaminophen). Maximum daily dose of Tylenol is 4000 mg from all sources. Antibiotics are required prior to any dental work. FOLLOW UP: Follow up with Dr. Steiner] Within 10-14 days, call for appointment Please call our office with any questions or concerns ([phone]) [facility]
[2018-12-03] MEDS: oxyCODONE TAB* 5 MG TAB PO PRN (11:08)
[2018-12-03 12:00] VITALS: BP 128/59
[2018-12-03] MEDS ORDERED: Bisacodyl SUPP* 10 MG SUPP PR PRN (14:01)
== END 2018-12-03 12:30 | disposition home health service (06) | DRG 470 ==
LOC: AA 08:14 → SSU 16:19
PROVIDERS: ADMIT Orthopaedic Surgery Adult Reconstructive Orthopaedic Surgery; ATTEND Orthopaedic Surgery Adult Reconstructive Orthopaedic Surgery
PROC: 0SRC069 Replacement of Right Knee Joint with Oxidized Zirconium on Polyethylene Synthetic Substitute, Cemented, Open Approach (ICD-10-PCS; principal; 2018-12-01 11:15)
DX: M17.11 Unilateral primary osteoarthritis, right knee (principal); I42.0 Dilated cardiomyopathy; F11.20 Opioid dependence, uncomplicated; I50.22 Chronic systolic (congestive) heart failure; I11.0 Hypertensive heart disease with heart failure; M21.061 Valgus deformity, not elsewhere classified, right knee; F32.9 Major depressive disorder, single episode, unspecified; M25.761 Osteophyte, right knee; I95.9 Hypotension, unspecified; S81.812A Laceration without foreign body, left lower leg, initial encounter; X58.XXXA Exposure to other specified factors, initial encounter; R33.9 Retention of urine, unspecified; Z96.652 Presence of left artificial knee joint; Z79.82 Long term (current) use of aspirin; Z79.899 Other long term (current) drug therapy; Z88.7 Allergy status to serum and vaccine; Z90.3 Acquired absence of stomach [part of]; Y92.89 Other specified places as the place of occurrence of the external cause; Z82.49 Family history of ischemic heart disease and other diseases of the circulatory system; Z80.1 Family history of malignant neoplasm of trachea, bronchus and lung
CPT/HCPCS: 36415; 80048; 81003; 81015; 85014; 85018; 85049; 87086; 88305; 88311; 90686; A9270-GY; C1776; G8978-GP-CJ; G8979-GP-CI; J0690; J0780; J1170; J1240; J2250; J2405; J2704; J2795; J3010; J8540